=== PATIENT | male | born 1985 | race Caucasian/White ===

== ENCOUNTER 2017-05-22 17:06 | Emergency (ER) | payer OTHER ==
[2017-05-22 17:58] VITALS: TEMP 99.4
--- NOTE | 2017-05-22 19:18 | XR ---
EXAMINATION TYPE: XR chest 2V DATE OF EXAM: 05/22/2017 COMPARISON: NONE HISTORY: Cough and congestion TECHNIQUE: Frontal and lateral views of the chest are obtained. FINDINGS: Heart and mediastinum are normal. Lungs are clear. Diaphragm is normal. Bony thorax appear s normal. IMPRESSION: Normal chest
[2017-05-22 19:26] VITALS: BP 160/91; PULSE 80; RESP 18
--- NOTE | 2017-05-22 19:26 | ED ---
General Adult HPI - General Chief complaint: Upper Respiratory Infection Stated complaint: Flu Time Seen by Provider: 05/22/17 18:44 Source: patient, RN notes reviewed Mode of arrival: ambulatory Limitations: no limitations - History of Present Illness Initial comments: Patient examined at this time shows no signs of distress. His pulse ox 96% on room air. Patient's lung sounds are clear. Chest x-rays negative for any evidence of pneumonia. Patient's cough nonproductive at this time. He will be given cough medication. Is advised uses at night as it may make him drowsy to codeine. Patient will also be given an albuterol inhaler along with steroids. He is advised follow-up the family doctor or return here to the emergency room symptoms increase worsen. He states understanding and is in agreement with plan. - Related Data Previous Rx's Medication Instructions Recorded Albuterol Inhaler [Ventolin Hfa 1 - 2 puff INHALATION Q4-6H PRN #1 05/22/17 Inhaler] inhaler Awsv-Yrml-Ijf 6.25-5-10Mg/5Ml 5 ml PO Q4-6H #150 ml 05/22/17 [Phenergan VC with Codeine] predniSONE 20 mg PO BID 5 Days tab 05/22/17 Allergies Allergy/AdvReac Type Severity Reaction Status Date / Time No Known Allergies Allergy Verified 05/22/17 17:58 Review of Systems ROS Statement: Those systems with pertinent positive or pertinent negative responses have been documented in the HPI. ROS Other: All systems not noted in ROS Statement are negative. Past Medical History Past Medical History: No Reported History History of Any Multi-Drug Resistant Organisms: None Reported Past Surgical History: Orthopedic Surgery Additional Past Surgical History / Comment(s): lt wrist Past Psychological History: Anxiety Smoking Status: Never smoker Past Alcohol Use History: Occasional Past Drug Use History: Marijuana General Exam Limitations: no limitations Course Vital Signs 05/22/17 05/22/17 17:54 18:52 Temperature 99.4 F Pulse Rate 86 Respiratory 22 Rate Blood Pressure 172/90 O2 Sat by Pulse 94 L 96 Oximetry Medical Decision Making - Lab Data Lab Results 05/22/17 Range/Units 18:00 Influenza Type A RNA Not Detected (Not Detectd) Influenza Type B (PCR) Not Detected (Not Detectd) Disposition Clinical Impression: Acute bronchitis Disposition: HOME SELF-CARE Condition: Good Instructions: Acute Bronchitis (ED) Additional Instructions: Please use medication as discussed. Please follow-up with family doctor in the next 2 days of symptoms have not improved. Please return to emergency room if the symptoms increase or worsen or for any other concerns. Prescriptions: Albuterol Inhaler [Ventolin Hfa Inhaler] 1 - 2 puff INHALATION Q4-6H PRN #1 inhaler PRN Reason: Cough predniSONE 20 mg PO BID 5 Days tab Dqpm-Tlmc-Cgp 6.25-5-10Mg/5Ml [Phenergan VC with Codeine] 5 ml PO Q4-6H #150 ml Referrals: Skyler Cintron MD [Primary Care Provider] - 1-2 days Time of Disposition: 19:24
== END 2017-05-22 19:26 | disposition home or self-care (01) ==
LOC: EC 17:06
DX: J20.9 Acute bronchitis, unspecified (principal)
CPT/HCPCS: 71046; 87502; 99283

== ENCOUNTER 2017-06-19 16:00 | Emergency (ER) | payer OTHER ==
[2017-06-19 16:24] VITALS: RESP 18
--- NOTE | 2017-06-19 16:40 | ED ---
General Adult HPI - General Chief complaint: Upper Respiratory Infection Stated complaint: bronchitis not getting better-revisit Time Seen by Provider: 06/19/17 16:29 Source: patient, RN notes reviewed Mode of arrival: ambulatory Limitations: no limitations - History of Present Illness Initial comments: This is a 31-year-old male who presents to the emergency department with chief complaint of cough. Patient states that he was seen here 1 month ago and was diagnosed with bronchitis. He states that his symptoms resolved but returned to one week ago. He states that he is coughing so much that he is coughing up blood. Denies any fevers or chills. Denies sore throat, abdominal pain, nausea or vomiting, diarrhea or constipation. He states that his cough is worse in the morning and that he sometimes experiences burning of his chest. - Related Data Previous Rx's Medication Instructions Recorded Albuterol Inhaler [Ventolin Hfa 1 - 2 puff INHALATION Q4-6H PRN #1 05/22/17 Inhaler] inhaler Iolp-Aphr-Max 6.25-5-10Mg/5Ml 5 ml PO Q4-6H #150 ml 05/22/17 [Phenergan VC with Codeine] predniSONE 20 mg PO BID 5 Days tab 05/22/17 Azithromycin [Zithromax Z-pack] 0 mg PO DIRECTED #6 tab 06/19/17 Benzonatate [Tessalon Perles] 100 mg PO TID #12 cap 06/19/17 Allergies Allergy/AdvReac Type Severity Reaction Status Date / Time No Known Allergies Allergy Verified 05/22/17 17:58 Review of Systems ROS Statement: Those systems with pertinent positive or pertinent negative responses have been documented in the HPI. ROS Other: All systems not noted in ROS Statement are negative. Past Medical History Past Medical History: No Reported History History of Any Multi-Drug Resistant Organisms: None Reported Past Surgical History: Orthopedic Surgery Additional Past Surgical History / Comment(s): lt wrist Past Psychological History: Anxiety Smoking Status: Never smoker Past Alcohol Use History: Occasional Past Drug Use History: Marijuana General Exam - General Exam Comments Initial Comments: General: Awake and alert, well-developed; in no apparent distress. HEENT: Head atraumatic, normocephalic. Pupils are equal, round and reactive to light. Extraocular movements intact. Oropharynx moist without erythema or exudate. Neck: Supple. Normal ROM. Cardiovascular: Regular rate and rhythm. No murmurs, rubs or gallops. Chest symmetrical. Respiratory: Lungs clear to auscultation bilaterally. No wheezes, rales or rhonchi. Normal respiratory effort with no use of accessory muscles. Musculoskeletal: Normal ROM, no tenderness bilateral upper and lower extremities. Ambulating normally. Skin: [place], warm and dry without rashes or lesions. Neurological: Alert and oriented x3. CN II-XII grossly intact. Speech is fluent and answers are appropriate. No focal neuro deficits. Psychiatric: Normal mood and affect. No overt signs of depression or anxiety noted. Limitations: no limitations Course Vital Signs 06/19/17 16:21 Temperature 99.1 F Pulse Rate 80 Respiratory 18 Rate Blood Pressure 193/86 O2 Sat by Pulse 95 Oximetry Medical Decision Making - Medical Decision Making This is a 31-year-old male who presents to emergency department with chief complaint of cough 1 week. Denies any fevers or chills. He states that he does get a burning sensation in his chest and has been coughing up blood. Chest x-ray revealed no evidence for any acute cardiopulmonary processes. However, patient will be treated with azithromycin as well as Tessalon Perles. Recommended a repeat chest x-ray in 2 weeks. Patient's vital signs are stable and he is in no acute distress. He is in agreement with plan and voices understanding. All questions were answered. He'll be discharged home. - Radiology Data Radiology results: report reviewed Chest x-ray impression: Normal chest. No change. Disposition Clinical Impression: Acute bronchitis Disposition: HOME SELF-CARE Condition: Good Instructions: Acute Bronchitis (ED) Additional Instructions: Please take medications as prescribed. Please have repeat x-ray in 2 weeks. Please follow up with primary care provider within 1-2 days. Return to emergency department if symptoms should worsen or any concerns arise. Prescriptions: Azithromycin [Zithromax Z-pack] 0 mg PO DIRECTED #6 tab Benzonatate [Tessalon Perles] 100 mg PO TID #12 cap Referrals: None,Stated [Primary Care Provider] - 1-2 days Time of Disposition: 17:30
--- NOTE | 2017-06-19 17:15 | XR ---
EXAMINATION TYPE: XR chest 2V DATE OF EXAM: 06/19/2017 COMPARISON: 05/22/2017 HISTORY: Cough TECHNIQUE: Frontal and lateral views of the chest are obtained. FINDINGS: Heart and mediastinum are normal. Lungs are clear. Diaphragm is normal. Bony thorax is int act. IMPRESSION: Normal chest. No change.
[2017-06-19 17:46] VITALS: BP 172/84; PULSE 87; TEMP 98.9
== END 2017-06-19 17:45 | disposition home or self-care (01) ==
LOC: EC 16:00
DX: J20.9 Acute bronchitis, unspecified (principal)
CPT/HCPCS: 71046; 99283

== ENCOUNTER 2023-09-29 05:23 | Emergency (ER) | payer OTHER ==
--- NOTE | 2023-09-29 05:26 | ED ---
Recheck HPI - General Source: patient, RN notes reviewed, old records reviewed Limitations: no limitations <Darrel Springer - Last Filed: 09/29/23 09:12> - General Source: RN notes reviewed, old records reviewed Mode of arrival: EMS Limitations: no limitations - History of Present Illness MD Complaint: abnormal lab (Elevated D-dimer near syncopal event), other (Chest pain) -: hour(s) Returns Today for: persistent/worsening pain related to initial visit Symptoms Since Prior Visit: worsening pain Associated Symptoms: none <Carlos Byrd - Last Filed: 10/12/23 21:44> - General Stated Complaint: Chest Pain Time Seen by Provider: 09/29/23 05:24 - History of Present Illness Initial Comments: 37-year-old male presents to the emergency department as a transfer from [place] chief complaint of chest pain. Patient states his pain started around 2:30 AM. He does have a history of hypertension. He states he takes lisinopril and hydrochlorothiazide. Patient states that the pain started in his upper chest and does radiate to his back. Patient did have initial workup at [facility] and transferred here for further evaluation. Upon evaluation patient was seen by Dr. Byrd and did have an laboratory studies, CT EKG repeated. (Darrel Springer) This is a 37-year-old male who is excepted in transfer from outpatient facility for severe chest pain chest pain and diaphoresis, patient presents to the emergency department with severe chest pain shortness of breath, patient was transferred to our facility for being too large at outpatient hospital to be received CT scanning secondary to not being able to fit on their CAT scan (Carlos Byrd) - Related Data Previous Rx's Medication Instructions Recorded Albuterol Inhaler [Ventolin Hfa 1 - 2 puff INHALATION Q4-6H PRN #1 05/22/17 Inhaler] inhaler Prjb-Owaw-Vjk 6.25-5-10Mg/5Ml 5 ml PO Q4-6H #150 ml 05/22/17 [Phenergan VC with Codeine] predniSONE [Deltasone] 20 mg PO BID 5 Days tab 05/22/17 Azithromycin [Zithromax Z-pack (6 0 mg PO DIRECTED #6 tab 06/19/17 tabs)] Benzonatate [Tessalon Perles] 100 mg PO TID #12 cap 06/19/17 Allergies Allergy/AdvReac Type Severity Reaction Status Date / Time codeine AdvReac Nausea Verified 09/29/23 05:37 Review of Systems ROS Other: All systems not noted in ROS Statement are negative. <Darrel Springer - Last Filed: 09/29/23 09:12> ROS Other: All systems not noted in ROS Statement are negative. <Carlos Byrd - Last Filed: 10/12/23 21:44> ROS Statement: Those systems with pertinent positive or pertinent negative responses have been documented in the HPI. Past Medical History Past Medical History: No Reported History History of Any Multi-Drug Resistant Organisms: None Reported Past Surgical History: Orthopedic Surgery Additional Past Surgical History / Comment(s): lt wrist Past Psychological History: Anxiety Past Alcohol Use History: Occasional Past Drug Use History: Marijuana <Carlos Byrd - Last Filed: 10/12/23 21:44> General Exam Limitations: no limitations General appearance: alert, in no apparent distress, obese Head exam: Present: atraumatic, normocephalic, normal inspection Eye exam: Present: normal appearance, PERRL, EOMI. Absent: scleral icterus, conjunctival injection, periorbital swelling ENT exam: Present: normal exam, mucous membranes moist Neck exam: Present: normal inspection, full ROM. Absent: tenderness, meningismus, lymphadenopathy Respiratory exam: Present: normal lung sounds bilaterally. Absent: respiratory distress, wheezes, rales, rhonchi, stridor Cardiovascular Exam: Present: regular rate, normal rhythm, normal heart sounds. Absent: systolic murmur, diastolic murmur, rubs, gallop, clicks GI/Abdominal exam: Present: soft, normal bowel sounds. Absent: distended, tenderness, guarding, rebound, rigid Neurological exam: Present: alert, oriented X3 Skin exam: Present: warm, dry, intact, normal color. Absent: rash <Darrel Springer - Last Filed: 09/29/23 09:12> General appearance: alert, in no apparent distress Head exam: Present: atraumatic, normocephalic, normal inspection Eye exam: Present: normal appearance, PERRL, EOMI. Absent: scleral icterus, conjunctival injection, periorbital swelling ENT exam: Present: normal exam, mucous membranes moist Neck exam: Present: normal inspection. Absent: tenderness, meningismus, lymphadenopathy Respiratory exam: Present: normal lung sounds bilaterally. Absent: respiratory distress, wheezes, rales, rhonchi, stridor Cardiovascular Exam: Present: regular rate, normal rhythm, normal heart sounds. Absent: systolic murmur, diastolic murmur, rubs, gallop, clicks GI/Abdominal exam: Present: soft, normal bowel sounds. Absent: distended, tenderness, guarding, rebound, rigid Extremities exam: Present: normal inspection, full ROM, normal capillary refill. Absent: tenderness, pedal edema, joint swelling, calf tenderness Back exam: Present: normal inspection Neurological exam: Present: alert, oriented X3, CN II-XII intact Psychiatric exam: Present: normal affect, normal mood Skin exam: Present: warm, dry, intact, normal color. Absent: rash <Carlos Byrd - Last Filed: 10/12/23 21:44> Course <Carlos Byrd - Last Filed: 10/12/23 21:44> Vital Signs 09/29/23 09/29/23 09/29/23 05:31 06:46 07:46 Temperature 97.1 F L Pulse Rate 59 L 75 68 Respiratory 20 20 22 Rate Blood Pressure 143/52 120/50 169/67 O2 Sat by Pulse 94 L 96 97 Oximetry 09/29/23 09/29/23 09/29/23 08:13 08:23 08:25 Temperature Pulse Rate 63 64 61 Respiratory 22 22 16 Rate Blood Pressure 154/77 157/82 157/82 O2 Sat by Pulse 93 L 90 L 90 L Oximetry 09/29/23 09/29/23 09/29/23 08:30 08:35 08:52 Temperature Pulse Rate 64 65 72 Respiratory 21 12 24 Rate Blood Pressure 141/69 158/68 112/87 O2 Sat by Pulse 90 L 92 L Oximetry 09/29/23 09:05 Temperature Pulse Rate 58 L Respiratory 22 Rate Blood Pressure 114/84 O2 Sat by Pulse 92 L Oximetry - Reevaluation(s) Reevaluation #1: 09/29/23 05:25 Records reviewed (Carlos Byrd) Reevaluation #2: 09/29/23 05:25 Patient chest pain is improved from prior facility , Severe nausea vomiting here in the emergency room with significant anxiety (Carlos Byrd) Reevaluation #5: Differential Chest Pain: Stable Angina, Unstable Angina, STEMI, NSTEMI Aortic Dissection, Pneumothorax, Musculoskeletal, Esophageal Spasm GERD, Cholecystitis, Pancreatitis, Zoster, this is not meant to be an all-inclusive list. (Carlos Byrd) Medical Decision Making - Lab Data Result diagrams: 09/29/23 05:38 09/29/23 05:38 <Darrel Springer - Last Filed: 09/29/23 09:12> - Lab Data Result diagrams: 09/29/23 05:38 09/29/23 05:38 - EKG Data -: EKG Interpreted by Me (EKG is sinus 61 OR 189 QRS 150 QTc 454) <Carlos Byrd - Last Filed: 10/12/23 21:44> - Medical Decision Making Was pt. sent in by a medical professional or institution (, PA, PRIVATE BRANCH EXCHANGE SERVICE ADVISOR, urgent care, hospital, or detention...) When possible be specific @ -[facility] Did you speak to anyone other than the patient for history (EMS, parent, family, police, friend...)? What history was obtained from this source @ -[No] Did you review nursing and triage notes (agree or disagree)? Why? @ -[I reviewed and agree with nursing and triage notes] Were old charts reviewed (outside hosp., previous admission, EMS record, old EKG, old radiological studies, urgent care reports/EKG's, detention records)? Report findings @ -All records from [facility] including labs, EKG Differential Diagnosis (chest pain, altered mental status, abdominal pain women, abdominal pain men, vaginal bleeding, weakness, fever, dyspnea, syncope, headache, dizziness, GI bleed, back pain, seizure, CVA, palpatations, mental health, musculoskeletal)? @ -Differential Chest Pain: Stable Angina, Unstable Angina, STEMI, NSTEMI Aortic Dissection, Pneumothorax, Musculoskeletal, Esophageal Spasm GERD, Cholecystitis, Pancreatitis, Zoster, this is not meant to be an all-inclusive list. EKG interpreted by me (3pts min.). @ -[As above] X-rays interpreted by me (1pt min.). @ -[None done] CT interpreted by me (1pt min.). @ -CT angio chest shows type a aortic dissection including the root into the arch there is an aneurysm of 5.3 cm there is no definite flap into the descending aorta CT abdomen pelvis showing large gallbladder with no inflammatory changes, mild liver disease no other acute findings U/S interpreted by me (1pt. min.). @ -[None done] What testing was considered but not performed or refused? (CT, X-rays, U/S, labs)? Why? @ -[None] What meds were considered but not given or refused? Why? @ -[None] Did you discuss the management of the patient with other professionals (pro fessionals i.e. , PA, PRIVATE BRANCH EXCHANGE SERVICE ADVISOR, lab, RT, psych nurse, dialysis social worker, industrial green systems designer, teacher, coastal/harbor defense officer, geriatric case manager)? Give summary @ -I discussed the case with As Margie on-call cardiothoracic recommends transfer to [facility] given type a dissection I did discuss the case with [facility] cardiothoracic and admitting team who accepts transfer ER to ER for aortic dissection. Was smoking cessation discussed for >3mins.? @ -[No] Was critical care preformed (if so, how long)? @ -75 mins Were there social determinants of health that impacted care today? How? (Homelessness, low income, unemployed, alcoholism, drug addiction, transportation, low edu. Level, literacy, decrease access to med. care, mcc, rehab)? @ -[No] Was there de-escalation of care discussed even if they declined (Discuss DNR or withdrawal of care, Hospice)? DNR status @ -[No] What co-morbidities impacted this encounter? (DM, HTN, Smoking, COPD, CAD, Cancer, CVA, ARF, Chemo, Hep., AIDS, mental health diagnosis, sleep apnea, morbid obesity)? @ -Hypertension, obesity Was patient admitted / discharged? Hospital course, mention meds given and route, prescriptions, significant lab abnormalities, going to OR and other pertinent info. @ -Transferred to [facility] for cardiothoracic surgery. Patient is a 37-year-old male presents the emergency department as a transfer from outside facility. Upon evaluation Dr. Byrd CT angio and abdomen were ordered including repeat laboratory studies. Patient did have a elevated D-dimer. Patient complains of upper chest and back pain. Patient has a history of hypertension. CT angio of the chest showed no evidence of PE but does show type a dissection with aneurysm changes at 5.3 cm. I discussed the case with cardiothoracic and vascular surgery here recommends transfer. I discussed the case with [facility] Dr. Estrada and Dr. Zepeda who is excepting. Patient does have mild hypertension which Cardene was started and will be titrated appropriately. Patient's heart rate within the 60s. Patient was given analgesics for pain control. It is recommended ground transfer from cardiothoracic. Patient is transferred by priority [facility] via [facility]. Undiagnosed new problem with uncertain prognosis? @ -Yes Drug Therapy requiring intensive monitoring for toxicity (Heparin, Nitro, Insulin, Cardizem)? @ -[No] Were any procedures done? @ -[No] Diagnosis/symptom? @ -Chest pain, aortic dissection Acute, or Chronic, or Acute on Chronic? @ -Acute Uncomplicated (without systemic symptoms) or Complicated (systemic symptoms)? @ -Complicated Side effects of treatment? @ -[No] Exacerbation, Progression, or Severe Exacerbation? @ -[No] Poses a threat to life or bodily function? How? (Chest pain, [place], [place], pneumonia, PE, COPD, DKA, ARF, appy, cholecystitis, CVA, Diverticulitis, Homicidal, Suicidal, threat to staff... and all critical care pts) @ -Yes aortic dissection, cardiac arrest (Darrel Springer) 37 male who is excepted to our facility for significant chest pain and severe chest pain here in the emergency department severe nausea vomiting and persistent chest pain here in the ER (Carlos Byrd) - Lab Data Lab Results 09/29/23 09/29/23 09/29/23 Range/Units 05:38 05:38 05:38 WBC 12.1 H (3.8-10.6) k/uL RBC 4.89 (4.30-5.90) m/uL Hgb 15.8 (13.0-17.5) gm/dL Hct 49.2 (39.0-53.0) % MCV 100.7 H (80.0-100.0) fL MCH 32.3 (25.0-35.0) pg MCHC 32.1 (31.0-37.0) g/dL RDW 13.0 (11.5-15.5) % Plt Count 134 L (150-450) k/uL MPV 8.8 Neutrophils % 78 % Lymphocytes % 13 % Monocytes % 7 % Eosinophils % 1 % Basophils % 0 % Neutrophils # 9.4 H (1.3-7.7) k/uL Lymphocytes # 1.6 (1.0-4.8) k/uL Monocytes # 0.8 (0-1.0) k/uL Eosinophils # 0.1 (0-0.7) k/uL Basophils # 0.0 (0-0.2) k/uL PT 13.1 H (10.0-12.5) sec INR 1.2 H (<1.2) APTT 23.6 (22.0-30.0) sec D-Dimer 3.91 H (<0.60) mg/L FEU Sodium 137 (137-145) mmol/L Potassium 3.6 (3.5-5.1) mmol/L Chloride 110 H (98-107) mmol/L Carbon Dioxide 20 L (22-30) mmol/L Anion Gap 7 mmol/L BUN 9 (9-20) mg/dL Creatinine 0.76 (0.66-1.25) mg/dL Est GFR (CKD-EPI)AfAm >90 (>60 ml/min/1.73 sqM) Est GFR (CKD-EPI)NonAf >90 (>60 ml/min/1.73 sqM) Glucose 160 H (74-99) mg/dL Lactic Ac Sepsis Rflx Plasma Lactic Acid Angel Luis (0.7-2.0) mmol/L Calcium 8.1 L (8.4-10.2) mg/dL Phosphorus 2.7 (2.5-4.5) mg/dL Magnesium 1.9 (1.6-2.3) mg/dL Total Bilirubin 1.4 H (0.2-1.3) mg/dL AST 76 H (17-59) U/L ALT 98 H (4-49) U/L Alkaline Phosphatase 121 (38-126) U/L Troponin I (0.000-0.034) ng/mL NT-Pro-B Natriuret Pep 262 pg/mL Total Protein 6.8 (6.3-8.2) g/dL Albumin 3.4 L (3.5-5.0) g/dL Lipase 190 (23-300) U/L Serum Alcohol <10 mg/dL 09/29/23 09/29/23 09/29/23 Range/Units 05:38 05:38 06:18 WBC (3.8-10.6) k/uL RBC (4.30-5.90) m/uL Hgb (13.0-17.5) gm/dL Hct (39.0-53.0) % MCV (80.0-100.0) fL MCH (25.0-35.0) pg MCHC (31.0-37.0) g/dL RDW (11.5-15.5) % Plt Count (150-450) k/uL MPV Neutrophils % % Lymphocytes % % Monocytes % % Eosinophils % % Basophils % % Neutrophils # (1.3-7.7) k/uL Lymphocytes # (1.0-4.8) k/uL Monocytes # (0-1.0) k/uL Eosinophils # (0-0.7) k/uL Basophils # (0-0.2) k/uL PT (10.0-12.5) sec INR (<1.2) APTT (22.0-30.0) sec D-Dimer (<0.60) mg/L FEU Sodium (137-145) mmol/L Potassium (3.5-5.1) mmol/L Chloride (98-107) mmol/L Carbon Dioxide (22-30) mmol/L Anion Gap mmol/L BUN (9-20) mg/dL Creatinine (0.66-1.25) mg/dL Est GFR (CKD-EPI)AfAm (>60 ml/min/1.73 sqM) Est GFR (CKD-EPI)NonAf (>60 ml/min/1.73 sqM) Glucose (74-99) mg/dL Lactic Ac Sepsis Rflx Y Plasma Lactic Acid Angel Luis 3.3 H* (0.7-2.0) mmol/L Calcium (8.4-10.2) mg/dL Phosphorus (2.5-4.5) mg/dL Magnesium (1.6-2.3) mg/dL Total Bilirubin (0.2-1.3) mg/dL AST (17-59) U/L ALT (4-49) U/L Alkaline Phosphatase (38-126) U/L Troponin I 0.031 (0.000-0.034) ng/mL NT-Pro-B Natriuret Pep pg/mL Total Protein (6.3-8.2) g/dL Albumin (3.5-5.0) g/dL Lipase (23-300) U/L Serum Alcohol mg/dL Critical Care Time Critical Care Time: Yes Total Critical Care Time: 75 <Darrel Springer - Last Filed: 09/29/23 09:12> Disposition - Out of Hospital Transfer - Req. Specs Out of Hospital Transfer - Requested Specifics: Other Emergency Center ([facility]) <Darrel Springer - Last Filed: 09/29/23 09:12> <Carlos Byrd - Last Filed: 10/12/23 21:44> Clinical Impression: Aortic dissection, Chest pain Disposition: OTHER INSTITUTION NOT DEFINED Condition: Critical Referrals: None,Stated [Primary Care Provider] - 1-2 days
[2023-09-29] MEDS ORDERED: MORPHINE SULFATE 4 MG/ML SYRINGE IV PRN (05:36)
[2023-09-29] MEDS ORDERED: ONDANSETRON 4 MG/2 ML VIAL IVP PRN (05:36)
[2023-09-29] MEDS ORDERED: NALOXONE 0.4 MG/ML 1 ML VIAL IV PRN (05:36)
[2023-09-29 05:44] VITALS: TEMP 97.1
[2023-09-29] MEDS: SODIUM CHLORIDE 0.9% 1,000 ML IV STA (05:44)
[2023-09-29 05:47] LABS: Basophils % (A) 0 %; Eosinophils # (A) 0.1 k/uL (0-0.7); Eosinophils % (A) 1 %; HCT 49.2 % (39.0-53.0); HGB 15.8 gm/dL (13.0-17.5); Lymphocytes # (A) 1.6 k/uL (1.0-4.8); Lymphocytes % (A) 13 %; MCH 32.3 pg (25.0-35.0); MCHC 32.1 g/dL (31.0-37.0); MCV 100.7 fL (80.0-100.0); Mean Platelet Volume 8.8; Monocytes # (A) 0.8 k/uL (0-1.0); Monocytes % (A) 7 %; Neutrophils # (A) 9.4 k/uL (1.3-7.7); Neutrophils % (A) 78 %; Platelet Count 134 k/uL (150-450); RBC 4.89 m/uL (4.30-5.90); WBC 12.1 k/uL (3.8-10.6)
[2023-09-29] MEDS: LORazepam 2 MG/ML INJ IV STA (05:47)
[2023-09-29 06:01] LABS: INR 1.2 (<1.2); Partial Thromboplastin Time 23.6 sec (22.0-30.0); Prothrombin Time 13.1 sec (10.0-12.5)
[2023-09-29] MEDS: HYDROmorphone 1 MG/ML 1 ML SYRINGE IVP STA ×2 (06:15→08:26)
[2023-09-29 06:17] LABS: ALT 98 U/L (4-49); AST 76 U/L (17-59); African American GFR (CKD) >90 (>60 ml/min/1.73 sqM); Albumin 3.4 g/dL (3.5-5.0); Alcohol <10 mg/dL; Alkaline Phosphatase 121 U/L (38-126); Anion Gap 7 mmol/L; Blood Urea Nitrogen 9 mg/dL (9-20); Calcium 8.1 mg/dL (8.4-10.2); Carbon Dioxide 20 mmol/L (22-30); Chloride 110 mmol/L (98-107); Glucose 160 mg/dL (74-99); Lipase 190 U/L (23-300); Magnesium 1.9 mg/dL (1.6-2.3); Non-African American GFR(CKD) >90 (>60 ml/min/1.73 sqM); Phosphorus 2.7 mg/dL (2.5-4.5); Potassium 3.6 mmol/L (3.5-5.1); Sodium 137 mmol/L (137-145); Total Bilirubin 1.4 mg/dL (0.2-1.3); Total Protein 6.8 g/dL (6.3-8.2)
[2023-09-29 06:25] LABS: NT-Pro-B-Type Natriuretic Pept 262 pg/mL
[2023-09-29] MEDS: SODIUM CHLORIDE 0.9% 1,000 ML IV SCH (06:43)
--- NOTE | 2023-09-29 07:32 | CT ---
EXAM: CT Angiography Chest With Intravenous Contrast CLINICAL HISTORY: Pain TECHNIQUE: Axial computed tomographic angiography images of the chest with intravenous contrast using aortic dissection protocol. CTDI is 26.5 mGy and DLP is 1116 mGy-cm. This CT exam was performed using one or more of the following dose reduction techniques: automated exposure control, adjustment of the mA and/or kV according to patient size, and/or use of iterative reconstruction technique. MIP reconstructed images were created and reviewed. COMPARISON: No relevant prior studies available. FINDINGS: Aorta: Evaluation of the thoracic aorta is limited by suboptimal contrast opacification and patient body habitus. There is a thin curvilinear density within the ascending aorta and aortic arch that is most likely a Arnold type A aortic dissection. Equal contrast opacification of the true and false lumens. There is aneurysmal dilatation of the aortic root and proximal ascending aorta, which measures up to 5.3 cm in diameter. Great vessels of aortic arch: Within the limitations of this exam, the dissection flap does not definitively extend into the arch branch vessels. There is no occlusion or significant stenosis. Lungs: Normal lung volumes. No evidence of airspace consolidation. No pulmonary edema. Pleural space: Unremarkable. No significant effusion. No pneumothorax. Heart: Mild cardiomegaly. No significant pericardial effusion. Bones/joints: No acute fracture. No dislocation. Soft tissues: Unremarkable. Lymph nodes: Unremarkable. No enlarged lymph nodes. IMPRESSION: Exam mildly limited by patient body habitus and suboptimal contrast opacification. 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 Dissection flap does not definitively extend into the arch branch vessels, and is not definitively seen within the descending thoracic aorta. Equal contrast opacification of the true and false lumens. There is also moderate aneurysmal dilatation of the aortic root and proximal ascending aorta, measuring up to 5.3 cm in diameter. Recommend vascular surgical consultation. No evidence of airspace consolidation, pulmonary edema, pleural effusion or pneumothorax. Mild cardiomegaly. No pericardial effusion. <MYCVCSECTION> Communications: 09/29/23 07:38 Call Doctor Regarding Aortic Dissection, called Dr. Lemus on 09/28 07:38 (-04:00)
--- NOTE | 2023-09-29 07:38 | CT ---
EXAM: CT Abdomen and Pelvis With Intravenous Contrast CLINICAL HISTORY: Reason: pain TECHNIQUE: Axial computed tomography images of the abdomen and pelvis with intravenous contrast. CTDI is 70 mGy and DLP is 3843.4 mGy-cm. This CT exam was performed using one or more of the following dose reduction techniques: automated exposure control, adjustment of the mA and/or kV according to patient size, and/or use of iterative reconstruction technique. COMPARISON: No relevant prior studies available. FINDINGS: ABDOMEN: Liver: Mildly nodular hepatic contour, suggestive of chronic liver disease. No definite focal hepatic lesion.. Gallbladder and bile ducts: Moderately distended gallbladder. There is no definite gallbladder wall thickening or pericholecystic fluid. No intra-or extra hepatic biliary ductal dilatation. Pancreas: Unremarkable. No mass. No ductal dilation. Spleen: There is mild splenomegaly, with the spleen measuring up to 18 cm in AP diameter. Adrenals: Unremarkable. No mass. Kidneys and ureters: Unremarkable. No solid mass. No hydronephrosis. Stomach and bowel: Unremarkable. No obstruction. No mucosal thickening. PELVIS: Appendix: No findings to suggest acute appendicitis. Bladder: Unremarkable. No mass. Reproductive: Unremarkable as visualized. ABDOMEN and PELVIS: Intraperitoneal space: Unremarkable. No free air. No significant fluid collection. Bones/joints: No acute fracture. No dislocation. Mild multilevel degenerative disc disease seen within the lumbar spine. Soft tissues: Unremarkable. Vasculature: Unremarkable. No abdominal aortic aneurysm. No evidence of abdominal aortic dissection though evaluation is somewhat limited by suboptimal contrast opacification and patient body habitus. Lymph nodes: Unremarkable. No enlarged lymph nodes. IMPRESSION: There is no definite acute inflammatory or obstructive process within the abdomen or pelvis. Moderately distended gallbladder. No pericholecystic infiltrative changes or biliary ductal dilatation. Nodular hepatic contour most likely due to chronic liver disease. There is mild splenomegaly. No evidence of ascites.
--- NOTE | 2023-09-29 07:58 | P.PN ---
Progress Note - Text Progress Note Date: 09/29/23 Patient admitted to [facility] at 0536 on 09/29/23 without notification. I was notified about admission at 0706. Called back at 0714. I was told that patient transferred from outside hospital for Chest pain. CTA chest and CT abd/pel read was still pending. I then received a call from [facility] around 0730. I was told this patient has Type A aortic dissection. Communicated back with ER. Patient will likely need to be transferred to tertiary care center.
[2023-09-29] MEDS: niCARdipine 20 MG in SODIUM CHLORIDE 0.9% 192 ML IV SCH (08:05)
[2023-09-29 09:16] VITALS: BP 114/84; PULSE 58; RESP 22
== END 2023-09-29 09:06 | disposition other institution (70) ==
LOC: EC 05:23 → 6NMEDSUR 05:36 → UNDOADMOB 05:36 → EC 09:06
DX: I71.00 Dissection of unspecified site of aorta (principal); I10 Essential (primary) hypertension; E66.9 Obesity, unspecified; Z68.33 Body mass index [BMI] 33.0-33.9, adult; Z88.5 Allergy status to narcotic agent; Z79.899 Other long term (current) drug therapy
CPT/HCPCS: 99291; 96365; 96375 ×2; 96376; 96361 ×2; 36415; 93005; 85379; 83880; 80053; 83605; 83690; 83735; 84100; 84484; 85025; 85610; 85730; 71275; 74177; G0480; J2060; J1170; Q9967; 80320